=== PATIENT | male | born 1980 | race African-American/Black ===

== ENCOUNTER 2021-08-10 16:29 | Emergency (ER) | payer SELFPAY ==
[2021-08-10] MEDS ORDERED: Ondansetron PF 4 MG/2 ML Vial ONE (17:45)
[2021-08-10 17:54] LABS: #Eosinphils 0.3 10x3/uL (0.0-0.5); #Monocytes 0.2 10x3/uL (0.0-1.1); #Neutrophils 3.6 10x3/uL (1.5-8.4); %Basophils 0.6 % (0.0-2.0); %Lymphocytes 34.7 % (18.0-47.0); %Monocytes 3.6 % (0.0-10.0); %Neutrophils 56.9 % (40.0-75.0); Hemoglobin 14.1 g/dL (13.5-17.5); Mean Corpuscular HGB CONC 35.8 g/dL (32.0-36.0); Mean Corpuscular Hemoglobin 30.7 pg (27.0-33.0); Mean Corpuscular Volume 85.7 fl (81.2-95.1); Mean Platelet Volume 9.8 fl (7.4-10.4); Platelet Count 179 10x3/uL (150-450); RBC Distribution Width 12.6 % (11.5-14.5); White Blood Cell (WBC) Count 6.3 10x3/uL (3.5-10.5)
[2021-08-10 18:10] LABS: ALT (SGPT) 17 U/L (8-55); AST (SGOT) 25 U/L (5-34); Alkaline Phosphatase 53 U/L (40-110); Anion Gap 14 mmol/L (10-20); BUN (Urea Nitrogen) 15 mg/dL (8.9-20.6); Bilirubin, Total 0.9 mg/dL (0.2-1.2); Calc. Creatinine Clearance 0 mL/min (70-130); Calcium 9.2 mg/dL (7.8-10.44); Carbon Dioxide 23 mmol/L (22-29); Chloride 106 mmol/L (98-107); Globulin 2.9 g/dL (2.4-3.5); Glucose 162 mg/dL (70-105); Potassium 3.6 mmol/L (3.5-5.1); Protein, Total 6.9 g/dL (6.0-8.3); Sodium 139 mmol/L (136-145)
== END 2021-08-10 18:42 | disposition home or self-care (01) ==
LOC: CSHERS 16:29
DX: R06.02 Shortness of breath (principal); G47.30 Sleep apnea, unspecified
CPT/HCPCS: 71045; 80053; 84484; 85025; 85379; 93005; 96374; J2405

== ENCOUNTER 2021-10-25 09:34 | Emergency (ER) | payer SELFPAY ==
[2021-10-25 10:07] LABS: Bilirubin Neg (Negative); Blood, Urine 10 (Negative); Clarity Clear (Clear); Glucose, Urine (Dipstick) Normal (Negative); Ketone, Urine Negative (Negative); Leukocyte Negative (Negative); Nitrite Negative (Negative); Protein, Urine (Dipstick) Negative (Neg-Trace); Specific Gravity, Urine 1.025 (1.002-1.036); Urobilinogen Normal mg/dL (Less than 2)
[2021-10-25 10:18] LABS: Bacteria/HPF None Seen HPF (None Seen); RBC/HPF 0-3 HPF (0-3); Squamous Epithelial None Seen HPF (0-3); WBC/HPF None Seen HPF (0-3)
[2021-10-25] MEDS ORDERED: cefTRIAXone\\ROCEPHIN 1 GM VIAL ONE (10:27)
[2021-10-25] MEDS ORDERED: Ketorolac Tromethamine 30 MG/ML VIAL ONE (10:27)
[2021-10-25] MEDS ORDERED: Sterile Water 10 ML ONE (10:29)
[2021-10-25 17:11] LABS: Chlam.trachomatis by PCR,Urine Not Detected (NotDetected)
== END 2021-10-25 11:00 | disposition home or self-care (01) ==
LOC: CSHERS 09:34
DX: S43.401A Unspecified sprain of right shoulder joint, initial encounter (principal); N34.2 Other urethritis; F17.200 Nicotine dependence, unspecified, uncomplicated; X50.0XXA Overexertion from strenuous movement or load, initial encounter
CPT/HCPCS: 81003; 81015; 87491; 87591; 96372; J0696; J1885

== ENCOUNTER 2022-01-07 01:08 | Emergency (ER) | payer SELFPAY ==
[2022-01-07] MEDS ORDERED: Dexamethasone 10 MG/ML VIAL ONE (03:08)
[2022-01-07] MEDS ORDERED: Dexamethasone 4 MG TAB ONE (03:11)
[2022-01-07 04:12] LABS: SARS-CoV-2 NAA Rapid Test Not Detected (NotDetected)
== END 2022-01-07 04:51 | disposition home or self-care (01) ==
LOC: CSHERS 01:08
DX: B34.9 Viral infection, unspecified (principal); F17.200 Nicotine dependence, unspecified, uncomplicated; Z20.822 Contact with and (suspected) exposure to COVID-19
CPT/HCPCS: 99284; J1100; J8540

== ENCOUNTER 2022-01-25 14:18 | Emergency (ER) | payer SELFPAY ==
[2022-01-25] MEDS ORDERED: Acetaminophen 500 MG TAB ONE (14:52)
[2022-01-25 15:24] LABS: SARS-CoV-2 NAA Rapid Test Not Detected (NotDetected)
== END 2022-01-25 16:20 | disposition home or self-care (01) ==
LOC: CSHERS 14:18
DX: J06.9 Acute upper respiratory infection, unspecified (principal); F17.200 Nicotine dependence, unspecified, uncomplicated; Z20.822 Contact with and (suspected) exposure to COVID-19
CPT/HCPCS: 71045

== ENCOUNTER 2022-06-01 16:11 | Emergency (ER) | payer BC, SELFPAY ==
[2022-06-01] MEDS ORDERED: predniSONE 20 MG TAB ONE (16:53)
== END 2022-06-01 17:15 | disposition home or self-care (01) ==
LOC: CSHERS 16:11
DX: J18.9 Pneumonia, unspecified organism (principal); F17.200 Nicotine dependence, unspecified, uncomplicated
CPT/HCPCS: 99283; J7512

== ENCOUNTER 2023-03-25 23:03 | Emergency (ER) | payer BC ==
[2023-03-25] MEDS ORDERED: Ketorolac Tromethamine 30 MG (1 mL) VIAL ONE (23:33)
[2023-03-26 00:32] LABS: SARS-CoV-2 NAA Rapid Test Not Detected (NotDetected)
== END 2023-03-26 01:15 | disposition home or self-care (01) ==
LOC: CSHERS 23:03
DX: J10.1 Influenza due to other identified influenza virus with other respiratory manifestations (principal); F17.210 Nicotine dependence, cigarettes, uncomplicated
CPT/HCPCS: 96372; 99284; J1885

== ENCOUNTER 2023-12-13 21:25 | Emergency (ER) | payer BC, SELFPAY ==
[2023-12-13] MEDS ORDERED: Cyclobenzaprine 10 MG TAB ONE (22:40)
[2023-12-13] MEDS ORDERED: Ibuprofen 200 MG TAB ONE (22:41)
[2023-12-13] MEDS ORDERED: Amoxicillin/Potassium Clav 875 MG TAB ONE (22:41)
[2023-12-13] MEDS ORDERED: predniSONE 20 MG TAB ONE (22:41)
== END 2023-12-13 23:13 | disposition home or self-care (01) ==
LOC: CSHERS 21:25
DX: J18.9 Pneumonia, unspecified organism (principal); S29.012A Strain of muscle and tendon of back wall of thorax, initial encounter; F17.210 Nicotine dependence, cigarettes, uncomplicated; X58.XXXA Exposure to other specified factors, initial encounter
CPT/HCPCS: 71045; J7512

== ENCOUNTER 2023-12-20 20:30 | Emergency (ER) | payer SELFPAY ==
[2023-12-20 21:28] LABS: #Basophils 0.03 10x3/uL (0.0-0.2); #Eosinophils 0.27 10x3/uL (0.0-0.5); #Monocytes 0.44 10x3/uL (0.0-1.1); #Neutrophils 3.77 10x3/uL (1.5-8.4); %Basophils 0.4 % (0.0-2.0); %Eosinophils 3.8 % (0.0-6.0); %Lymphocytes 35.8 % (18.0-47.0); %Monocytes 6.2 % (0.0-10.0); %Neutrophils 53.5 % (40.0-75.0); Hematocrit 37.6 % (38.8-50.0); Hemoglobin 13.2 g/dL (13.5-17.5); Mean Corpuscular HGB CONC 35.1 g/dL (32.0-36.0); Mean Corpuscular Hemoglobin 31.3 pg (27.0-33.0); Mean Corpuscular Volume 89.1 fL (81.2-95.1); Mean Platelet Volume 9.2 fL (7.4-10.4); Platelet Count 201 10x3/uL (150-450); RBC Distribution Width 13.2 % (11.5-14.5); Red Blood Cell (RBC) Count 4.22 10x6/uL (4.32-5.72); White Blood Cell (WBC) Count 7.1 10x3/uL (3.5-10.5)
[2023-12-20 21:48] LABS: ALT (SGPT) 27 U/L (8-55); AST (SGOT) 35 U/L (5-34); Albumin 3.6 g/dL (3.5-5.0); Alkaline Phosphatase 60 U/L (40-110); Anion Gap 12 mmol/L (10-20); BUN (Urea Nitrogen) 16 mg/dL (8.9-20.6); Bilirubin, Total 0.5 mg/dL (0.2-1.2); Calc. Creatinine Clearance 0 mL/min (70-130); Calcium 8.3 mg/dL (7.8-10.44); Carbon Dioxide 25 mmol/L (22-29); Chloride 108 mmol/L (98-107); Estimated GFR 88; Globulin 5.4 g/dL (2.4-3.5); Glucose 92 mg/dL (70-105); Magnesium 2.3 mg/dL (1.6-2.6); Potassium 3.7 mmol/L (3.5-5.1); Sodium 141 mmol/L (136-145)
== END 2023-12-20 22:58 | disposition home or self-care (01) ==
LOC: CSHERS 20:30
DX: M54.50 Low back pain, unspecified (principal); M62.838 Other muscle spasm; F17.210 Nicotine dependence, cigarettes, uncomplicated
CPT/HCPCS: 36415; 80053; 83735; 85025; 99283

== ENCOUNTER 2024-02-03 18:14 | Emergency (ER) | payer SELFPAY ==
[2024-02-03] MEDS ORDERED: Ketorolac Tromethamine 30 MG (1 mL) VIAL ONE (19:34)
[2024-02-03] MEDS ORDERED: Ondansetron ODT 4 MG TAB ONE (19:34)
[2024-02-03 20:17] LABS: MONO NEGATIVE CONTROL ZONE White (Negative) (White); MONO POSITIVE CONTROL Pink Line (Positive) (PINK/RED); Mononucleosis NEGATIVE (NEGATIVE)
[2024-02-03 20:53] LABS: HIV (1/2) Antibody/Antigen Non-Reactive (NonReactive); HIV 1/2 INDEX 0.07 S/CO (<1.00)
[2024-02-04 01:23] LABS: Chlam.trachomatis by PCR,Urine Not Detected (NotDetected); GC N.gonorrhoeae PCR,UrineVOID Not Detected (NotDetected)
== END 2024-02-03 20:02 | disposition home or self-care (01) ==
LOC: CSHERS 18:14
DX: J02.9 Acute pharyngitis, unspecified (principal); F17.210 Nicotine dependence, cigarettes, uncomplicated
CPT/HCPCS: 36415; 86308; 87081; 87389; 87428; 87430; 87491; 87591; 96372; 99283; J1885; Q0162